=== PATIENT | male | born 1940 | race Caucasian/White ===

== ENCOUNTER 2022-01-22 15:56 | Emergency (ER) | payer OTHER ==
--- NOTE | 2022-01-22 15:59 | ERPHSYRPT ---
- History of Present Illness Time Seen by Provider: 01/22/22 15:59 Source: patient Exam Limitations: no limitations Physician History: This is an 81-year-old white male patient who is not on any anticoagulation therapy and tripped hitting his head and his outstretched hands causing abrasion to the right scalp and palmar aspect of both hands. Patient's tetanus status is not up-to-date. Patient did not lose consciousness. He had significant bleeding from the sites. Patient arrives to the emergency department via ambulance service awake alert and oriented. He has no neck pain. Occurred: just prior to arrival Reason for Fall: tripped Injuries/Pain Location: head Loss of Consciousness: no loss of consciousness Severity of Pain-Max: mild Severity of Pain-Current: none Associated Symptoms (Fall): denies symptoms Allergies/Adverse Reactions: No Known Drug Allergies Allergy (Unverified 01/22/22 16:11) Travel Risk - International Travel Have you traveled outside of the country in past 3 weeks: No - Coronavirus Screening Are you exhibiting any of the following symptoms?: No Close contact with a COVID-19 positive Pt in past 14-21 Days: No - Review of Systems Constitutional: No Symptoms Eyes: No Symptoms Ears, Nose, & Throat: No Symptoms Respiratory: No Symptoms Cardiac: No Symptoms Abdominal/Gastrointestinal: No Symptoms Genitourinary Symptoms: No Symptoms Musculoskeletal: No Symptoms Skin: Other (Fall abrasion right forehead with associated small subcutaneous hematoma. Small palmar aspect abrasions bilateral hands.) Neurological: No Symptoms Psychological: No Symptoms Endocrine: No Symptoms Hematologic/Lymphatic: No Symptoms Immunological/Allergic: No Symptoms All Other Systems: Reviewed and Negative - Past Medical History Pertinent Past Medical History: Yes - Past Surgical History Past Surgical History: Yes - Nursing Vital Signs Nursing Vital Signs: Initial Vital Signs Temperature 97.6 F 01/22/22 15:57 Pulse Rate 71 01/22/22 15:57 Respiratory Rate 20 01/22/22 15:57 Blood Pressure 150/88 01/22/22 15:57 O2 Sat by Pulse Oximetry 99 01/22/22 15:57 Pain Scale Pain Intensity 1 - Gonzalez Coma Score Best Eye Response (Cushing): (4) open spontaneously Best Verbal Response (Gonzalez): (5) oriented Best Motor Response (Gonzalez): (6) obeys commands Gonzalez Total: 15 - Physical Exam General Appearance: no apparent distress, alert, anxiety Head Injury: swelling (Abrasion right forehead), tenderness (Right forehead abrasion with subcutaneous hematomasmall) Eye Exam: PERRL/EOMI, eyes nml inspection ENT Exam: airway nml Neck Exam: supple, trachea midline, full range of motion, normal alignment, normal inspection Respiratory/Chest Exam: chest tenderness, normal breath sounds, No respiratory distress, No ecchymosis, No crepitus Cardiovascular Exam: normal heart sounds Gastrointestinal Exam: soft Rectal Exam: not done Back Exam: normal inspection, normal range of motion, No CVA tenderness, No vertebral tenderness Extremity Exam: normal range of motion, tenderness (Very mild in the area of abrasion sites to the palmar aspect of both hands.) Neurologic Exam: alert, oriented x 3, cooperative, [employer] worker II-XII nml as tested, normal mood/affect, nml cerebellar function, nml station & gait, sensation nml Skin Exam: abrasion (Small abrasion right forehead, small abrasion left hand palmar aspect and small abrasion right hand palmar aspect.) SpO2 Interpretation: normal - Course Nursing assessment & vital signs reviewed: Yes Ordered Tests: Active Orders 24 hr Category Date Time Status Wound Care STAT Care 01/22/22 16:13 Active HEAD WITHOUT CONTRAST [CT] Stat Exams 01/22/22 16:11 Taken Medication Summary Discontinued Medications Generic Name Dose Route Start Last Admin Trade Name Freq PRN Reason Stop Dose Admin Bacitracin Zinc 0.9 each 01/22/22 16:14 01/22/22 16:26 Bacitracin Packet 1 Each Pckt TP 01/22/22 16:15 0.9 each STAT ONE Administration Bacitracin Zinc Confirm 01/22/22 16:22 Bacitracin Packet 1 Each Pckt Administered 01/22/22 16:23 Dose 1 each .ROUTE .STK-MED ONE Diphtheria/Tetanus/Acell Pertussis 0.5 ml 01/22/22 16:13 01/22/22 16:26 Tdap --Diph,Pertuss(Acell),Tet Vac/Pf 0.5 Ml Vial IM 01/22/22 16:14 0.5 ml .ONCE ONE Administration Diphtheria/Tetanus/Acell Pertussis Confirm 01/22/22 16:22 Tdap --Diph,Pertuss(Acell),Tet Vac/Pf 0.5 Ml Vial Administered 01/22/22 16:23 Dose 0.5 ml IM .STK-MED ONE - Progress Progress: improved Progress Note: 01/22/22 17:51 ct head without contrast no acute intracranial abnormality. no cranial fx Counseled pt/family regarding: diagnosis, need for follow-up, rad results - Departure Departure Disposition: Home Clinical Impression: Fall with no significant injury, Abrasions of multiple sites Condition: Stable Critical Care Time: No Additional Instructions: Keep all abrasion sites clean daily with soap and water and cover with antibiotic ointment. may use ice pack to right forehead area 3 times daily
[2022-01-22 16:11] VITALS: O2SAT 99
[2022-01-22] MEDS ORDERED: Adacel Vial IM ONE ×2 (16:13→16:22)
[2022-01-22] MEDS ORDERED: BACIGUENT PACKET TP ONE (16:14)
[2022-01-22] MEDS ORDERED: BACIGUENT PACKET ONE (16:22)
[2022-01-22 17:54] VITALS: BP 153/72; PULSE 56
--- NOTE | 2022-01-22 22:46 | XRAY ---
Indication: Right frontal laceration. Multiple contiguous axial images obtained through the head without contrast. Comparison: None Age-appropriate global atrophy and mild periventricular degenerative micro-ischemia bilaterally. No acute intracranial hemorrhage, abnormal extra-axial fluid collection, or mass effect. Fourth ventricle is midline without hydrocephalus. Small right frontal parietal scalp hematoma. Bony calvarium intact. Visualized paranasal sinuses and mastoid air cells are clear. Impression: Nonacute senile brain. Incidental small right scalp hematoma. Comment: Preliminary interpretation made by [facility]. No critical discrepancy.
== END 2022-01-22 18:00 ==
LOC: ED 15:56
DX: S00.01XA Abrasion of scalp, initial encounter (principal); S60.512A Abrasion of left hand, initial encounter; S60.511A Abrasion of right hand, initial encounter; W01.0XXA Fall on same level from slipping, tripping and stumbling without subsequent striking against object, initial encounter
CPT/HCPCS: 70450; 90471; 90715; 99283; A9270-GY